=== PATIENT | female | born 1985 | race Caucasian/White ===

== ENCOUNTER 2020-07-01 14:14 | Emergency (ER) | payer BC, SELFPAY ==
[2020-07-01 14:34] VITALS: BP 127/85; PULSE 81; RESP 18; TEMP 37; O2SAT 100
--- NOTE | 2020-07-01 14:47 | DI.RAD_ITS ---
EXAM: XR ANKLE RT COMPLETE INDICATION: fall/twist/pain. COMPARISON: No exams were available for comparison TECHNIQUE: 2D digital imaging was performed. FINDINGS: There is marked soft tissue swelling around the lateral malleolus. No fracture or ankle mortise wide hung is seen. There is a heel spur. IMPRESSION: Soft tissue swelling. DATA REPOSITORY: RADIATION DOSE DELIVERED:
--- NOTE | 2020-07-01 15:00 | DI.VRAD_ITS ---
PROCEDURE INFORMATION: Exam: XR Right Ankle Exam date and time: 07/01/2020 2:44 PM Age: 35 years old Clinical indication: Injury or trauma; Fall; Initial encounter; Blunt trauma; Ankle; Right TECHNIQUE: Imaging protocol: XR Right ankle. Views: 3 or more views. COMPARISON: No relevant prior studies available. FINDINGS: Bones/joints: There is a small plantar spur. Ankle mortise joint is normal. There is a 3 mm osseous density inferior to lateral malleolus and lies lateral to talus. There is no cortical step-off and is favored to be bony spur over avulsion fracture. Soft tissues: There is soft tissue swelling of ankle, most pronounced over lateral malleolus. IMPRESSION: 1. No acute fracture or subluxation. 2. Moderate soft tissue ankle swelling, most pronounced over lateral malleolus. 3. Small plantar spur. Dictated and Authenticated by: Ridge Leo MD. Ordering:RAZA Rawls MD
--- NOTE | 2020-07-01 15:14 | ED.GENADUL_ITS ---
Discharge Plan Disposition Patient Disposition: HOME Condition: Stable Discharge Details Chief Complaint: Orthopedic Clinical Impression: Ankle sprain ED Provider: Curly Bliss Home Meds and New Rx's Prescriptions: No Action dextroamphetamine-amphetamine [Adderall XR] 20 mg Capsule,Extended Release 24hr 20 mg PO QAM RF: 0 ibuprofen [Advil] 200 mg Tablet 600 mg PO Q6H PRNRF: 0 Discharge Instructions Instructions: Ankle Sprain (ED) Additional Instructions: X-ray does not reveal any fracture or dislocation. Rest, elevate, cool compresses every 2 hours for 20 minutes. [id number] Tylenol and/or Motrin as directed for discomfort. Wear stirrup splint and use crutches as needed, advance activity as tolerated. Please watch for new or worsening symptoms and return to the ER for any concerns. If you are not significantly improved in 1 week, I have given you the name and number of our local orthopedic provider to follow-up with. Referrals: Beau Meléndez MD [ [facility] STAFF PHYSICIAN] - Medical Decision Making 35-year-old female presents with right ankle pain. She has swelling to the lateral malleolus. Neuro, vascular, tendon intact. Will obtain x-ray to rule out bony involvement. X-ray read by virtual radiology as no acute fracture or subluxation. Moderate soft tissue ankle swelling, most pronounced over the lateral malleolus. Discussed x-ray findings with patient. Discussed treatment options. She will be placed in an air stirrup splint, crutches with teaching provided. Patient has no additional questions or concerns and is comfortable discharge at this time HPI General Mode of arrival: ambulatory . Date/Time Provider Initiated Documentation: 07/01/20 14:26 . Limitations to Documentation: no limitations . Information obtained by: patient . HPI Narrative: Patient reports that she was lately jumping on a exercise trampoline, twisting her right ankle. She reports spraining that ankle last year. She denies any other injury. Denies numbness, tingling, weakness. Pain is moderate at rest, worse with attempting to bear weight. She has not taken any [id number] medications for her symptoms. Related Data Home Medications Medication Instructions Recorded Confirmed dextroamphetamine-amphetamine 20 mg PO QAM 07/01/20 07/01/20 [Adderall XR] ibuprofen [Advil] 600 mg PO Q6H PRN 07/01/20 07/01/20 Allergies Allergy/AdvReac Type Severity Reaction Status Date / Time amoxicillin Allergy Skin Rash Unverified 07/01/20 14:32 Penicillins Allergy Skin Rash Unverified 07/01/20 14:32 General Stated Complaint: Orthopedic NORI: 4 Review of Systems Constitutional Constitutional: Denies weakness Gastrointestinal Gastrointestinal: Denies nausea and Denies vomiting Musculoskeletal Musculoskeletal: Denies numbness and Denies tingling Neurologic Neurologic: Denies numbness, Denies tingling and Denies weakness [facility] Social History Smoking/Tobacco Use Status: Current-Occasional Alcohol Intake: never Drug use: Never Substance use type: does not use Do you feel safe at home: Yes Do you feel safe in your relationship?: Yes Exam Const General: cooperative, healthy appearing, comfortable and no acute distress Orientation: alert and awake HENMT Head: normal to inspection, normocephalic and atraumatic Mouth: moist mucous membranes Eyes Conjunctivae: conjunctivae normal Neck Neck: normal visual inspection, trachea midline and supple Resp Effort & Inspection: normal respiratory effort and able to speak in complete sentences Cardio Rate: regular rate Rhythm: regular rhythm Skin General skin exam: no rashes or lesions noted Neuro General: patient alert, patient awake, moves all extremities and no focal motor deficits Sensory Exam: no sensory deficits noted Extrem Right lower extremity: normal capillary refill and ankle Details: abnormal to inspection, tenderness Location: of the lateral malleolus, swelling Details: laterally and abnormal ROM (Limited to secondary to discomfort.); no ecchymosis Psych Appearance: grossly normal Mental Status: mental status grossly normal Course Vital Signs Vital signs: Vital Signs Temperature 37 C 07/01/20 14:34 Pulse 81 07/01/20 14:34 Respiratory Rate 18 07/01/20 14:34 Blood Pressure 127/85 07/01/20 14:34 Pulse Oximetry 100 07/01/20 14:34 Temperature 37 C 07/01/20 14:34 Temperature Source Temporal Artery Scan 07/01/20 14:34 Pulse 81 07/01/20 14:34 Respiratory Rate 18 07/01/20 14:34 Respiratory Effort Non-Labored 07/01/20 14:38 Blood Pressure 127/85 09/05/20 14:34 Blood Pressure Position Sitting 07/01/20 14:34 Pulse Oximetry 100 07/01/20 14:34 Oxygen Delivery Method Room Air 07/01/20 14:34 Oxygen Flow Rate 0 07/01/20 14:34 Pain Level 7 07/01/20 14:40
== END 2020-07-01 15:32 | disposition home or self-care (01) ==
PROVIDERS: Emergency Provider Physician Assistant
DX: S93.491A Sprain of other ligament of right ankle, initial encounter (principal); X50.9XXA Other and unspecified overexertion or strenuous movements or postures, initial encounter
CPT/HCPCS: 99283; 73610; E0114; L4350